=== PATIENT | female | born 2000 | race Caucasian/White ===

== ENCOUNTER 2021-02-05 01:18 | Emergency (ER) | payer MEDICAID ==
--- NOTE | 2021-02-05 01:46 | ED Physician Documentation ---
PD HPI SKIN - Stated complaint Stated Complaint: REACTION/ITCHING - Chief complaint Chief Complaint: Allergic Rx - History obtained from History obtained from: Patient - History of Present Illness Timing - onset: Enter time (01:00), Today Timing - details: Abrupt onset Pain level max: 0 Pain level now: 0 Location: Bodywide (sparing of face, scalp, neck, palms, soles) Associated symptoms: No: Fever Similar symptoms before: Has not had sx before Review of Systems Constitutional: reports: Reviewed and negative Throat: reports: Reviewed and negative Cardiac: reports: Reviewed and negative Respiratory: denies: Dyspnea, Cough, Wheezing : denies: Now EGA Skin: reports: Rash PD PAST MEDICAL HISTORY - Past Medical History Past Medical History: No - Present Medications Home Medications: Ambulatory Orders Medication Instructions Recorded Confirmed busPIRone [Buspar] 5 mg PO PRN PRN 02/05/21 02/05/21 predniSONE [Deltasone] 40 mg PO DAILY 3 Days #6 tablet 02/05/21 - Allergies Allergies/Adverse Reactions: Allergies Allergy/AdvReac Type Severity Reaction Status Date / Time butorphanol [From Stadol] Allergy Hives Verified 02/05/21 01:36 cinnamon Allergy Hives Verified 02/05/21 01:36 meperidine [From Demerol] Allergy Hives Verified 02/05/21 01:36 morphine Allergy Hives Verified 02/05/21 01:36 PD ED PE NORMAL - Vitals Vital signs reviewed: Yes - General General: Alert and oriented X 3, No acute distress, Well developed/nourished - Cardiac Cardiac: RRR, No murmur - Respiratory Respiratory: No respiratory distress, Clear bilaterally - Derm Derm: Other (subtle, diffuse hives BUE and BLE, trunk) Results - Vitals Vitals: Oxygen O2 Source Room air PD MEDICAL DECISION MAKING - ED course Complexity details: considered differential, d/w patient ED course: presents with diffuse, pruritic hives without apparent trigger. Improving without intervention before this evaluation. Given benadryl and PO steroid with rx for steroid and to follow OTC label benadryl for further symptoms Departure - Departure Disposition: 01 Home, Self Care Clinical Impression: Hives Condition: Good Instructions: ED Allergic Reaction General Other Prescriptions: predniSONE [Deltasone] 40 mg PO DAILY 3 Days #6 tablet Comments: Take benadryl 25mg-50mg by mouth every six hours as needed for symptoms (rash, itching). This is available [id number], so no prescription is necessary. A prescription for prednisone has been electronically submitted to [facility] in [place] Discharge Date/Time: 02/05/21 02:27
[2021-02-05] MEDS ORDERED: predniSONE 20 MG TABLET PO STA (02:13)
[2021-02-05] MEDS ORDERED: diphenhydrAMINE 25 MG CAPSULE PO STA (02:13)
[2021-02-05 02:29] VITALS: BP 140/80
== END 2021-02-05 02:27 | disposition home or self-care (01) ==
LOC: ED 01:18
DX: L50.9 Urticaria, unspecified (principal)
CPT/HCPCS: 99282; 99283; A9270; J7512

== ENCOUNTER 2021-04-18 08:00 | Outpatient (CLI) | payer MEDICAID ==
[2021-04-18 19:31] LABS: BILIRUBIN,URINE NEGATIVE (NEGATIVE); GLUCOSE, URINE (UA) NEGATIVE (NEGATIVE); KETONES,URINE (UA) NEGATIVE (NEGATIVE); LEUKOCYTE ESTERASE, URINE NEGATIVE (NEGATIVE); NITRITE,URINE NEGATIVE (NEGATIVE); OCCULT BLOOD,URINE NEGATIVE (NEGATIVE); PROTEIN,URINE NEGATIVE (NEGATIVE); UROBILINOGEN,URINE 0.2 (NORMAL) E.U./dL (NORMAL)
[2021-04-18 19:37] LABS: CLARITY,URINE CLEAR (CLEAR)
[2021-04-18 21:21] LABS: BACTERIA,URINE Rare /HPF (None Seen); RBC,URINE 0-5 /HPF (0-5); SQUAMOUS EPITHELIAL CELL,UR FEW Squamous (<= Few); WBC,URINE 0-3 /HPF (0-5)
== END 2021-04-18 23:59 | disposition home or self-care (01) ==
LOC: LAB.WC 08:00
PROVIDERS: ATTEND Obstetrics & Gynecology
DX: Z32.01 Encounter for pregnancy test, result positive (principal)
CPT/HCPCS: 81001; 87086